=== PATIENT | male | born 1985 | race Two or more races ===

== ENCOUNTER 2017-12-20 19:53 | Emergency (ER) | payer OTHER ==
[~2017-12-20] VITALS: Ht 172.7 cm; Wt 101.9 kg
[2017-12-20 20:01] VITALS: BP 144/92
[2017-12-20] MEDS ORDERED: HYDROmorphone 1 MG/ML, 1ML IM ONE (20:30)
[2017-12-20] MEDS ORDERED: KETOROLAC 30 MG/1 ML IM ONE (20:30)
[2017-12-20] MEDS ORDERED: DIPH,PERTUSS(ACELL),TET VAC/PF 0.5 ML IM-VACC ONE ×2 (20:30→20:36)
[2017-12-20] MEDS ORDERED: METHOCARBAMOL 750 MG TABLET PO ONE (20:30)
[2017-12-20] MEDS ORDERED: KETOROLAC 30 MG/1 ML ONE (20:35)
[2017-12-20] MEDS ORDERED: HYDROmorphone 2 MG/ML, 1ML ONE (20:35)
[2017-12-20] MEDS ORDERED: METHOCARBAMOL 750 MG TABLET ONE (20:35)
[2017-12-20 21:26] LABS: MICROSCOPIC INDICATED
[2017-12-20 21:48] LABS: CULTURE INDICATED? NO
== END 2017-12-20 22:16 | disposition home or self-care (01) ==
LOC: ED 21:07
DX: S22.081A Stable burst fracture of T11-T12 vertebra, initial encounter for closed fracture (principal); Z90.89 Acquired absence of other organs; V47.5XXA Car driver injured in collision with fixed or stationary object in traffic accident, initial encounter; Y93.89 Activity, other specified; Y92.89 Other specified places as the place of occurrence of the external cause; Y99.8 Other external cause status
CPT/HCPCS: 71045; 72128; 72131; 81001; 90471; 90715; 96372; 99285; J1170; J1885

== ENCOUNTER 2017-12-25 16:43 | Emergency (ER) | payer OTHER | END 2017-12-25 17:20 | disposition left against medical advice (07) | LOC: ED 17:14 | DX: Z53.21 Procedure and treatment not carried out due to patient leaving prior to being seen by health care provider (principal) ==